=== PATIENT | female | born 1975 | race Caucasian/White ===

== ENCOUNTER 2022-08-26 07:43 | Day surgery (SDC) | payer OTHER ==
[~2022-08-26] VITALS: Ht 170.2 cm; Wt 81.6 kg
[2022-08-26] MEDS ORDERED: MIDAZOLAM 2 MG/2 ML VIAL ONE (08:57)
[2022-08-26] MEDS ORDERED: LIDOCAINE 2% 100 MG/5 ML UJET TP ONE (08:57)
[2022-08-26] MEDS ORDERED: fentaNYL citrate 0.05 MG/ML VIAL ONE (08:57)
[2022-08-26] MEDS ORDERED: fentaNYL citrate 0.05 MG/ML VIAL IVP ONE (10:15)
[2022-08-26] MEDS ORDERED: MIDAZOLAM 2 MG/2 ML VIAL IVP ONE (10:15)
== END 2022-08-26 10:54 | disposition home or self-care (01) ==
LOC: MDS 07:43 → MMU 07:44 → MDS 10:54
PROVIDERS: ATTEND Internal Medicine Gastroenterology
DX: Z12.11 Encounter for screening for malignant neoplasm of colon (principal); K57.30 Diverticulosis of large intestine without perforation or abscess without bleeding; F32.A Depression, unspecified; Z90.49 Acquired absence of other specified parts of digestive tract; Z79.899 Other long term (current) drug therapy; Z20.822 Contact with and (suspected) exposure to COVID-19
CPT/HCPCS: 36415; 43239; 45378; 86677; 87426; J2250; J3010